=== PATIENT | female | born 2000 | race Caucasian/White ===

== ENCOUNTER 2022-01-06 14:17 | Emergency (ER) | payer SELFPAY ==
[2022-01-06 14:37] VITALS: BP 122/79; PULSE 64; RESP 14; TEMP 36.1; O2SAT 99
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
[2022-01-06 16:13] VITALS: BP 119/69; PULSE 67; RESP 14; TEMP 36.1; O2SAT 100
== END 2022-01-06 16:14 | disposition home or self-care (01) ==
PROVIDERS: Emergency Provider Physician Assistant
DX: S00.83XA Contusion of other part of head, initial encounter (principal); Y04.2XXA Assault by strike against or bumped into by another person, initial encounter; F17.210 Nicotine dependence, cigarettes, uncomplicated
CPT/HCPCS: 70450; 70486; 72125; 99283

== ENCOUNTER 2023-11-03 00:13 | Emergency (ER) | payer MEDICAID, SELFPAY ==
[2023-11-03 00:15] VITALS: BP 115/73; PULSE 88; RESP 16; TEMP 36.6; O2SAT 100; BMI 34.3
[2023-11-03 00:51] LABS: Add Urine Microscopic? YES; Bilirubin Urine Neg (Negative); Blood Urine 3+ (Negative); Glucose Urine UA Norm (Normal); Ketones Urine Negative (Negative); Leukocyte Esterase Urine 1+ (Negative); Nitrate Urine Negative (Negative); Protein Urine Neg (Negative); Urine Appearance Hazy (CLEAR); Urine Color Yellow (Yellow); Urobilinogen Urine Neg (Negative); pH Urine 5 (5-7)
[2023-11-03 00:52] LABS: Add Urine Culture? Yes; Bacteria Urine 1+ /hpf; Mucus Urine 2+ /hpf; Trichomonas Urine 1+ /hpf; WBC Urine 15-25 /hpf (0-5)
--- NOTE | 2023-11-03 00:52 | ED_ITS ---
HPI - Female Genitourinary 2 General: Chief complaint: Vaginal Bleeding Stated complaint: 9 Weeks Preg\Bleeding Time Seen by Provider: 11/03/23 00:25 History of Present Illness: Presents to the ER with complaints of light vaginal bleeding. Patient reports she is approximate 9 weeks . Patient says she has hemorrhoids is not unusual to have limited blood when she wipes. Patient wiped and had blood on toilet paper earlier today. And then when patient uses the restroom 1 more time she noticed blood in her underwear and then her urine. When patient went to the bathroom here to give us urine sample she noticed blood in her urine. Patient says she has a pressure feeling down low like when you are constipated. Patient denies any cramps sharp stabbing pains or unusual discharge. Patient is not had an ultrasound yet this . Patient does have 1 scheduled in about 3 days. Date of Last Menstrual Period: 08/30/23 Review of Systems 2 General: Reports: 10 or more systems reviewed and unremarkable except in HPI and below PFSH ED 2 PFSH: Medical History Psychiatric care No significant past medical history Surgical History No significant past surgical history Social History Smoking and tobacco/nicotine status: current every day tobacco/nicotine user cigarettes Years cigarettes smoked: 2 and smokeless tobacco Smokeless tobacco user: chewing tobacco Alcohol intake: never Substance/Drug Use: never Lives independently: Yes Housing: House Marital status: Single Female Reproductive History: Date of last menstrual period: 08/30/23 Physical Exam 2 Const: COMMON NORMALS: no acute distress, average body habitus, patient oriented x3, no limitations, healthy appearing, alert and well nourished Neck/C-Spine: COMMON NORMALS: no JVD Chest: COMMONS NORMALS: normal inspection of the chest and normal palpation of entire chest wall Resp: COMMON NORMALS: normal respiratory effort, No retractions, No use of accessory muscles and clear to auscultation bilaterally AUSCULTATION: clear to auscultation bilaterally Cardio: COMMON NORMALS: no JVD, regular rate, regular rhythm, S1 normal heart sound present, S2 normal heart sound present, No gallops present (Cardio), No clicks present (Cardio), No murmurs present (Cardio) and No rub (Cardio) R ATE: regular rate RHYTHM: regular rhythm HEART SOUNDS: S1 normal heart sound present and S2 normal heart sound present GI: COMMON NORMALS: Normal to inspection, nondistended, normoactive bowel sounds present, Soft to palpation, non-tender, No hepatosplenomegaly present and no masses PALPATION: Yes Soft to palpation and Yes No hepatosplenomegaly present Neuro: COMMON NORMALS: patient oriented x3 SENSORIUM/ORIENTATION: Yes alert Course 2 Vital Signs: Vital signs: Vital Signs Temperature 97.9 F 11/03/23 00:15 Pulse Rate 84 11/03/23 03:40 Respiratory Rate 16 11/03/23 03:40 Blood Pressure 125/71 11/03/23 03:40 Pulse Oximetry 99 11/03/23 03:40 Oxygen Delivery Me thod Room Air 11/03/23 03:00 MDM - Female Medical Decision Making Patient had lab work and an ultrasound. Ultrasound showed sac but no fetus this may represent a failed or just a very early stage. Beta- hCG was about 600. These results was discussed with patient and her family patient already has an OB appointment on Tuesday in approximately 3 days in [place]. We will provide lab work and disc of imaging for her to take to her OB appointment. Differential Diagnosis Unlikely abdominal pain, acute appendicitis, calculus of kidney, constipation, diverticulitis, endometriosis, gastroenteritis, pancreatitis or small bowel obstruction Medical Records I reviewed the patient's medical records. Lab Data I reviewed the patient's lab results. 11/03/23 00:49 11/03/23 00:49 Radiology Impressions Obstetrics Ultrasound 11/03/23 01:20 IMPRESSION: Mean sac diameter of 0.43 cm which dates the at 5 weeks and 1 day, which is about 1 month behind the clinical age. Given the mean sac diameter is greater than 25 mm and no embryo is visualized on the transvaginal scan, the diagnostic criteria for failed is met. Recommend obstetrics and gynecology consultation. ADDENDUM: 11/03/23 0302 Upon further review the diagnostic criteria for of unknown viability is met and NOT FAILED , therefore close clinical follow-up is recommended with continuing serial laboratory examinations and follow-up imaging as clinically appropriate. ADDENDUM: 11/03/23 0618 The above addendum and report was discussed with Dr. Ramirez on 11/03/2023 at 3:11 a.m. Laboratory Results WBC 11.70 10^3/uL (3.29-11.43) H 11/03/23 00:49 RBC 3.84 10^6/uL (3.85-5.65) L 11/03/23 00:49 Hgb 11.70 g/dL (11.27-16.99) 11/03/23 00:49 Hct 35.5 % (36-47) L 11/03/23 00:49 MCV 92.4 fl (85-98) 11/03/23 00:49 MCH 30.5 pg (27-33) 11/03/23 00:49 MCHC 33.0 g/dL (30-55) 11/03/23 00:49 RDW 12.8 % (12.1-15.1) 11/03/23 00:49 Plt Count 324 10^3/cmm (157-399) 11/03/23 00:49 MPV 9.3 fL (7.4-10.4) 11/03/23 00:49 Neut % (Auto) 61.9 % 11/03/23 00:49 Lymph % (Auto) 29.7 % 11/03/23 00:49 [place] % (Auto) 7.0 % 11/03/23 00:49 Eos % (Auto) 0.8 % 11/03/23 00:49 Baso % (Auto) 0.3 % 11/03/23 00:49 Neut # (Auto) 7.24 10^3/uL (1.8-7.7) 11/03/23 00:49 Lymph # (Auto) 3.5 10^3/uL (0.8-4.8) 11/03/23 00:49 [place] # (Auto) 0.8 10^3/uL (0.2-0.9) 11/03/23 00:49 Eos # (Auto) 0.1 10^3/uL (0.0-0.8) 11/03/23 00:49 Baso # (Auto) 0.0 10^3/uL (0.0-0.1) 11/03/23 00:49 Nucleated RBC % (auto) 0 % 11/03/23 00:49 Nucleated RBCs # 0.0 /100WBC 11/03/23 00:49 Sodium 136 mmol/L (136-145) 11/03/23 00:49 Potassium 4.0 mmol/L (3.5-5.1) 11/03/23 00:49 Chloride 102 mmol/L (98-107) 11/03/23 00:49 Carbon Dioxide 23 mmol/L (22-29) 11/03/23 00:49 Anion Gap 15.0 (5-19) 11/03/23 00:49 BUN 10 mg/dL (6-20) 11/03/23 00:49 Creatinine 0.5 mg/dL (0.5-0.9) 11/03/23 00:49 GFR Calculation 152.9 mL/min (90-130) H 11/03/23 00:49 Glucose 86 mg/dL (65-115) 11/03/23 00:49 Calculated Osmolality 280 mOsm/kg (285-295) L 11/03/23 00:49 Calcium 9.2 mg/dL (8.5-10.5) 11/03/23 00:49 Total Bilirubin 0.2 mg/dL (0.15-1.2) 11/03/23 00:49 AST 21 U/L (0-32) 11/03/23 00:49 ALT 18 U/L (0-33) 11/03/23 00:49 Alkaline Phosphatase 67 U/L (35-105) 11/03/23 00:49 Total Protein 7.3 g/dL (6.6-8.7) 11/03/23 00:49 Albumin 4.3 g/dL (3.5-5.2) 11/03/23 00:49 Globulin 3.0 g/dL (1.3-4.6) 11/03/23 00:49 Ser , Semi-Qnt 618.50 mIU/mL 11/03/23 00:49 Urine Color Yellow (Yellow) 11/03/23 00:34 Urine Appearance Hazy (CLEAR) A 11/03/23 00:34 Urine pH 5 (5-7) 11/03/23 00:34 Ur Specific [place] 1.030 (1.005-1.030) 11/03/23 00:34 Urine Protein Neg (Negative) 11/03/23 00:34 Urine Glucose (UA) Norm (Normal) 11/03/23 00:34 Urine Ketones Negative (Negative) 11/03/23 00:34 Urine Blood 3+ (Negative) H 11/03/23 00:34 Urine Nitrate Negative (Negative) 11/03/23 00:34 Urine Bilirubin Neg (Negative) 11/03/23 00:34 Urine Urobilinogen Neg mg/dL (Negative) 11/03/23 00:34 Ur Leukocyte Esterase 1+ (Negative) H 11/03/23 00:34 Urine RBC 5-10 /hpf (0-2) H 11/03/23 00:34 Urine WBC 15-25 /hpf (0-5) H 11/03/23 00:34 Ur Squamous Epith Cells 5-10 /hpf (0-5) H 11/03/23 00:34 Amorphous Sediment Not Reportable 11/03/23 00:34 Urine Bacteria 1+ /hpf (NONE) H 11/03/23 00:34 Urine Mucus 2+ /hpf 11/03/23 00:34 Urine Trichomonas 1+ /hpf H 11/03/23 00:34 Blood Type A Positive 11/03/23 00:49 Rho(D) Type Rh positive 11/03/23 00:49 Antibody Screen Negative 11/03/23 00:49 All radiology interpretation(s) finalized by discharge Discharge Plan Discharge Patient Disposition: Home Clinical Impression: Vaginal bleeding in Condition: Stable Prescriptions: No Action buspirone 10 mg tablet 10 mg PO TID hydroxyzine HCl 10 mg tablet 5 mg PO .hs PRN citalopram [Celexa] 20 mg tablet 20 mg PO DAILY cyclobenzaprine 5 mg tablet 5 mg PO TID PRN (Reason: muscle spasm) Qty: 25 0RF Discharge Orders: Discharge ED (Routine); Ordered 11/03/23 Ordered By: Marquise Ramirez Referrals: Mendy Padilla LPN [Primary Care Provider] - 1 week Patient Instructions: (ED) Activity Restrictions/Additional Instructions: Your ultrasound in the ER was abnormal. It showed a sac but no pole. Your beta hCG is also low from where you should be by dates. Your beta hCG was 618. Please keep your appointment with your OB that you already have scheduled on [place]. You will be provided with your ultrasound on a disc as well as your lab work to take with you. They want to do more testing for further evaluation. If you have more pain cramping or bleeding please feel free to return to the ER for further evaluation. Stand Alone Forms: Work/School Release Coding Level of Care Code ED [employer] for Regina Mancini
[2023-11-03 01:01] LABS: Basophils % 0.3 %; Eosinophils # 0.1 10^3/uL (0.0-0.8); Eosinophils % 0.8 %; Hematocrit 35.5 % (36-47); Lymphocytes # 3.5 10^3/uL (0.8-4.8); Lymphocytes % 29.7 %; Mean Corpuscular Hemoglobin 30.5 pg (27-33); Mean Corpuscular Volume 92.4 fl (85-98); Mean Platelet Volume 9.3 fL (7.4-10.4); Monocytes # 0.8 10^3/uL (0.2-0.9); Neutrophils # 7.24 10^3/uL (1.8-7.7); Neutrophils % 61.9 %; Nucleated Red Blood Cells % 0 %; Platelet Count 324 10^3/cmm (157-399); Red Blood Count 3.84 10^6/uL (3.85-5.65); Red Cell Distribution Width 12.8 % (12.1-15.1)
--- NOTE | 2023-11-03 01:20 | USR_ITS ---
PROCEDURE INFORMATION: Exam: US , Limited Exam date and time: 11/03/2023 12:53 AM Age: 23 years old Clinical indication: Lmp or gestational age (in weeks): 5w 1d by ev; Antepartum complications; Other: Light spotting today, no pain; ; Patient HX: G2-p0-a1-l0 light spotting today, quant hcg = 618; Additional info: 9 weeks gestation, low hcg, vaginal bleeding LABS AND CLINICAL REPORTS: Serum Choriogonadotropin (HCG): 618 mIU/mL Last menstrual period start date: 08/30/2023 Gestational age (Established): 9 w 2 d Estimated due date (Established): 06/05/2024 TECHNIQUE: Imaging protocol: Real-time ultrasound of the maternal uterus with image documentation. Exam focused on the clinical indication. COMPARISON: No relevant prior studies available. FINDINGS: Gestation: Single gestational sac is appropriately positioned within the endometrial cavity, which measures 0.5 x 0.3 x 0.4. The gestational sac has a mean sac diameter of 0.43 cm which dates the at 5 weeks and 1 day. No yolk sac or pole was visualized. There is a dating discrepancy by 1 month. BIOMETRY: Gestational age (AUA): 5 w 1 d MATERNAL: Uterus: Uterus measures 7.8 cm x 3.1 cm x 2.7 cm. Right ovary/adnexa: Right ovary measures 3.1 cm x 1.9 cm x 1.6 cm. Left ovary/adnexa: Left ovary measures 3.1 cm x 2.1 cm x 1.4 cm. Left ovarian volume is 4.5 mL. US/ OB limited [id number] IMPRESSION: Mean sac diameter of 0.43 cm which dates the at 5 weeks and 1 day, which is about 1 month behind the clinical age. Given the mean sac diameter is greater than 25 mm and no embryo is visualized on the transvaginal scan, the diagnostic criteria for failed is met. Recommend obstetrics and gynecology consultation.
[2023-11-03 01:27] LABS: Alanine Aminotransferase 18 U/L (0-33); Albumin Level 4.3 g/dL (3.5-5.2); Alkaline Phosphatase 67 U/L (35-105); Aspartate Amino Transferase 21 U/L (0-32); Blood Urea Nitrogen 10 mg/dL (6-20); Calcium 9.2 mg/dL (8.5-10.5); Carbon Dioxide 23 mmol/L (22-29); Chloride 102 mmol/L (98-107); Creatinine Clr Calc Pharmacy 184.0897; Glomerular Filtration Rate 152.9 mL/min (90-130); Glucose 86 mg/dL (65-115); Osmolality Calculated 280 mOsm/kg (285-295); Sodium 136 mmol/L (136-145); Total Bilirubin 0.2 mg/dL (0.15-1.2); Total Protein 7.3 g/dL (6.6-8.7)
[2023-11-03 03:00] VITALS: PULSE 82; O2SAT 99
[2023-11-03 03:40] VITALS: BP 125/71; PULSE 84; RESP 16; O2SAT 99
== END 2023-11-03 03:40 | disposition home or self-care (01) ==
PROVIDERS: Emergency Provider Emergency Medicine; PCP Dermatology
DX: O20.9 Hemorrhage in early pregnancy, unspecified (principal); O99.331 Smoking (tobacco) complicating pregnancy, first trimester; F17.210 Nicotine dependence, cigarettes, uncomplicated; F17.220 Nicotine dependence, chewing tobacco, uncomplicated; Z3A.09 9 weeks gestation of pregnancy
CPT/HCPCS: 36415; 76815; 80053; 81001; 84702; 85025; 86850; 86900; 87086; 99284

== ENCOUNTER → 2024-05-08 09:25 | Outpatient (BNVA) | payer MEDICAID, SELFPAY | PROVIDERS: PCP Dermatology; Visit Provider Nurse Practitioner Family | DX: F41.9 Anxiety disorder, unspecified (principal); R53.83 Other fatigue | CPT/HCPCS: 80053; 80061; 82306; 82607; 84443; 85025 ==

== ENCOUNTER → 2025-04-01 15:31 | Outpatient (BNVA) | payer MEDICAID, SELFPAY | PROVIDERS: PCP Dermatology; Visit Provider Nurse Practitioner | DX: R79.89 Other specified abnormal findings of blood chemistry (principal) | CPT/HCPCS: 84439; 84443; 84481 ==